=== PATIENT | female | born 1945 | race Caucasian/White ===

== ENCOUNTER 2024-12-10 20:31 | Observation (INO) | payer MEDICARE, SELFPAY ==
[2024-12-10 20:32] VITALS: BP 182/68; PULSE 67; RESP 18; TEMP 36.6; O2SAT 94; BMI 29.0
--- NOTE | 2024-12-10 20:49 | RAD_ITS ---
PROCEDURE: CHEST PA AND LATERAL 12/10/2024 REASON FOR EXAM: DIZZY TECHNIQUE: CHEST PA AND LATERAL COMPARISON: None. FINDINGS: The heart is borderline enlarged. Faint reticular opacities of the lung bases which may represent mild edema or infection. Elevation of left hemidiaphragm. RAD/Chest PA and Lateral IMPRESSION: As above. Reading Location: [place] [id number]
--- NOTE | 2024-12-10 20:57 | EX.ED.DYSGE1 ---
HPI <IGGY Snowden - Last Filed: 12/10/24 21:59> History of Present Illness Chief Complaint: Chest Other Narrative Narrative: 79-year-old female with past medical history of hypertension presents because she does not feel right. Around 3 PM she states she got an episode where she felt like I could be dizzy but was not quite described as a feeling that she might fall after standing and her right arm felt heavy. She was still able to hold her cell phone and move the right arm normally but it felt very heavy. This lasted a couple minutes. There was no associated chest pain or shortness of breath. There was extremity pain or paresthesias. She had similar episodes 2-3 times a lasting minutes each time prompting her to come in. She denies GI symptoms. She has no vision or speech changes. She had a headache earlier but it has resolved. PFSH <IGGY Snowden - Last Filed: 12/10/24 21:59> [facility] Medical History (Updated 12/10/24 @ 22:[address] Tyron Rivera MD) Hypertension Allergy/AdvReac Type Severity Reaction Status Date / Time No Known Allergies Allergy Verified 12/10/24 20:34 Social History (Updated 12/10/24 @ 20:35 by Collette Berman) housing: house Smoking Status: Never smoker ROS <IGGY Snowden - Last Filed: 12/10/24 21:59> ROS ED ROS Narrative Constitutional: Negative for fever, chills, malaise. CVS: Negative for palpitations, chest pain, syncope. Respiratory: Negative for shortness of breath, cough. GI: Negative for abdominal pain, nausea, vomiting, diarrhea. : Negative for dysuria. EXAM <IGGY Snowden - Last Filed: 12/10/24 21:59> Physical Exam Narrative Exam Narrative: CONST: Patient sitting in no acute distress. EYES: Normal inspection. PERRL, EOMI. ENT: Normal inspection, moist mucous membranes. NECK: Normal inspection. RESP: No respiratory distress, CTAB. CVS: Regular rate and rhythm, no murmur, no gallop. ABD: Soft and nontender, no guarding or rebound, nondistended. SKIN: Color normal, no rash, warm, dry, intact. EXTREMITIES: Normal appearance, no pedal edema. NEURO: Alert and oriented x 4. Face symmetric, cranial nerves II through XII grossly intact. 5/5 strength in upper and lower extremities. Normal finger-nose and icja-pr-ypcl. No drift. Normal speech, no extinction. NIH is 0. PSYCH: Normal affect. Const Vital Signs: 12/10/24 20:32 12/10/24 20:34 Temperature 97.9 F Temperature Source Oral Pulse Rate 67 Respiratory Rate 18 Respiratory Effort Normal Non-Labored Blood Pressure 182/68 H Blood Pressure Mean 106 Pulse Ox 94 Oxygen Delivery Method Room Air <Dr. Tyron Rivera MD - Last Filed: 12/10/24 22:21> Physical Exam Const Vital Signs: 12/10/24 20:32 12/10/24 20:34 Temperature 97.9 F Temperature Source Oral Pulse Rate 67 Respiratory Rate 18 Respiratory Effort Normal Non-Labored Blood Pressure 182/68 H Blood Pressure Mean 106 Pulse Ox 94 Oxygen Delivery Method Room Air MDM <IGGY Snowden - Last Filed: 12/10/24 21:59> [facility] MDM Narrative Medical decision making narrative: Differential: TIA, CVA 79-year-old female had multiple transient episodes of feeling off balance and right arm heaviness earlier today. She now feels back to baseline. She is awake and alert in no distress. She is hypertensive at 182/68 with otherwise normal vital signs. She is on chronic blood pressure medications. Her exam is benign and she has no focal neurological deficits with NIH of 0. No concern she could have had a TIA but since symptoms have resolved did not call a code stroke. I ordered a CT brain and CTA of the head/neck. CBC and BMP are unremarkable. Urinalysis has 100 leukocyte esterase and 5-10 WBCs but is nitrite and bacteria negative and she is not symptomatic so I do not think this represents a UTI. EKG is normal sinus rhythm with LAD and incomplete RBBB. There is no acute ischemic changes. There is no prior EKG for comparison. Troponin is 9. Radiologist read the chest x-ray as faint bibasilar opacities which could be edema or infection; she does not have fever, cough, respiratory symptoms so I do not suspect infection. CT brain is negative. CT of the head/neck is pending. Lab Data Attestation: I reviewed the patient's lab results. Labs: Laboratory Results - last 24 hr 12/10/24 12/10/24 20:15 21:02 WBC 9.3 RBC 4.79 Hgb 14.2 Hct 42.1 MCV 87.9 MCH 29.6 MCHC 33.7 RDW Std Deviation 41.0 RDW Coeff of Wally 12.6 Plt Count 283 MPV 9.2 Immature Gran % (Auto) 0.500 Neut % (Auto) 70.8 H Lymph % (Auto) 19.1 Calhoun % (Auto) 7.7 Eos % (Auto) 0.9 Baso % (Auto) 1.0 Absolute Neuts (auto) 6.6 Absolute Lymphs (auto) 1.78 Nucleated RBC % 0 Sodium 133 Potassium 3.8 Chloride 95 L Carbon Dioxide 26.2 Anion Gap 11 BUN 16 Creatinine 0.89 Estim Creat Clear Calc 50.51 Est GFR (MDRD) Non-Af 66 BUN/Creatinine Ratio 18.2 Glucose 122 H Calcium 9.5 Troponin T High Sens 9 Urine Color Yellow Urine Clarity Clear Urine pH 6.5 Ur Specific [place] 1.015 Urine Protein 15 H Urine Glucose (UA) Normal Urine Ketones Negative Urine Occult Blood 25 H Urine Nitrite Negative Urine Bilirubin Negative Urine Urobilinogen Normal Ur Leukocyte Esterase 100 H Urine RBC 0-5 SEEN Urine WBC 5-10 SEEN Ur Squamous Epith Cells 0-5 SEEN Urine Bacteria 0 SEEN Urine Mucus 0 SEEN Radiography Diagnostic Testing: Clinical Impression(s) from Imaging Studies Chest X-Ray 12/10/24 20:49 IMPRESSION: As above. Reading Location: [id number] Brain CT 12/10/24 21:02 IMPRESSION: No acute intracranial abnormality. Reading Location: [id number] Head/Neck CTA 12/10/24 21:02 IMPRESSION: 1. No large vessel occlusion. 2. Focal narrowing at the A3 segment of the left MEJIA. 3. Tiny 1-2 mm outpouching near the terminus of the right internal carotid artery, possibly a tiny aneurysm, though vessel infundibulum could appear similar. 4. Solid pulmonary nodules at the left lung apex measuring up to [address] chest in 12 months if patient is at high risk for malignancy per Fleischner society guidelines. Reading Location: [facility] ED attending interpretation of 2 view chest x-ray shows normal heart size. No large infiltrates, no effusions. The radiologist read faint reticular opacities in both lung bases which could be edema or infection. Patient does not have symptoms referable fever or cough so I do not think this is infectious. EKG Initial EKG: Attestation: I personally reviewed and interpreted this EKG as follows: Interpretation: Sinus Rhythm and No Acute Injury Pattern Comments: Normal sinus rhythm at 65 bpm Left axis deviation Incomplete RBBB No STEMI Prior EKG tracings: not available for review <Dr. Tyron Rivera MD - Last Filed: 12/10/24 22:21> MDM MDM Narrative Medical decision making narrative: Differential: TIA, CVA 79-year-old female had multiple transient episodes of feeling off balance and right arm heaviness earlier today. She now feels back to baseline. She is awake and alert in no distress. She is hypertensive at 182/68 with otherwise normal vital signs. She is on chronic blood pressure medications. Her exam is benign and she has no focal neurological deficits with NIH of 0. No concern she could have had a TIA but since symptoms have resolved did not call a code stroke. I ordered a CT brain and CTA of the head/neck. CBC and BMP are unremarkable. Urinalysis has 100 leukocyte esterase and 5-10 WBCs but is nitrite and bacteria negative and she is not symptomatic so I do not think this represents a UTI. EKG is normal sinus rhythm with LAD and incomplete RBBB. There is no acute ischemic changes. There is no prior EKG for comparison. Troponin is 9. Radiologist read the chest x-ray as faint bibasilar opacities which could be edema or infection; she does not have fever, cough, respiratory symptoms so I do not suspect infection. CT brain is negative. CT of the head/neck is pending. I have personally performed a face to face assessment of the patient and have reviewed the HERMELINDO Note. I performed a substantive portion of the visit including all aspects of the following. My deluca findings include: History is remarkable for intermittent heaviness of her right upper extremity. She did have a headache earlier today. Denied double vision, blurred vision loss of vision. No trouble with speech or swallowing. She has no history of TIA or CVA. She states she was not dragging her right leg. She felt like she was off when she had the heaviness in her arm. She had another episode while she was in department after the PA had seen her. She did not tell anyone about it. These episodes last up to several minutes. Exam is remarkable for slight drift right lower extremity. There is no other abnormality noted on neurologic exam. Medical Decision Making concern patient is having stuttering TIAs. Do not believe this is a conversion reaction. Doubt this is related to a tumor or vasculitis. Stroke up work was entertaining. The CT a of the head neck and unenhanced scan reports were reviewed. Other additions or changes: Since patient had multiple episodes of arm feeling heavy and had some slight weakness in the right lower extremity on my examination hospitalist was paged for TIA/stroke workup. Since there is concern that this represents stuttering TIAs allowing for permissive hypertension. NIH on my exam is 1 for slight drift right lower extremity. Lab Data Labs: Laboratory Results - last 24 hr 12/10/24 12/10/24 20:15 21:02 WBC 9.3 RBC 4.79 Hgb 14.2 Hct 42.1 MCV 87.9 MCH 29.6 MCHC 33.7 RDW Std Deviation 41.0 RDW Coeff of Wally 12.6 Plt Count 283 MPV 9.2 Immature Gran % (Auto) 0.500 Neut % (Auto) 70.8 H Lymph % (Auto) 19.1 Calhoun % (Auto) 7.7 Eos % (Auto) 0.9 Baso % (Auto) 1.0 Absolute Neuts (auto) 6.6 Absolute Lymphs (auto) 1.78 Nucleated RBC % 0 Sodium 133 Potassium 3.8 Chloride 95 L Carbon Dioxide 26.2 Anion Gap 11 BUN 16 Creatinine 0.89 Estim Creat Clear Calc 50.51 Est GFR (MDRD) Non-Af 66 BUN/Creatinine Ratio 18.2 Glucose 122 H Calcium 9.5 Troponin T High Sens 9 Urine Color Yellow Urine Clarity Clear Urine pH 6.5 Ur Specific [place] 1.015 Urine Protein 15 H Urine Glucose (UA) Normal Urine Ketones Negative Urine Occult Blood 25 H Urine Nitrite Negative Urine Bilirubin Negative Urine Urobilinogen Normal Ur Leukocyte Esterase 100 H Urine RBC 0-5 SEEN Urine WBC 5-10 SEEN Ur Squamous Epith Cells 0-5 SEEN Urine Bacteria 0 SEEN Urine Mucus 0 SEEN Radiography Chest X-Ray - ED: 2 View (Normal cardiac silhouette and size. There are some minor chronic changes versus poor in story volume. Osseous structures reveal some degenerative changes no acute findings. Hilum is unremarkable. This is dependently reviewed interpreted by me.) Diagnostic Testing: Clinical Impression(s) from Imaging Studies Chest X-Ray 12/10/24 20:49 IMPRESSION: As above. Reading Location: [id number] Brain CT 12/10/24 21:02 IMPRESSION: No acute intracranial abnormality. Reading Location: [facility] Head/Neck CTA 12/10/24 21:02 IMPRESSION: 1. No large vessel occlusion. 2. Focal narrowing at the A3 segment of the left MEJIA. 3. Tiny 1-2 mm outpouching near the terminus of the right internal carotid artery, possibly a tiny aneurysm, though vessel infundibulum could appear similar. 4. Solid pulmonary nodules at the left lung apex measuring up to [address] chest in 12 months if patient is at high risk for malignancy per Fleischner society guidelines. Reading Location: [facility] Management Discussion w/another healthcare provider: Hospitalist (Dr. Sarmiento was paged for PCU observation status for stroke/TIA workup. Dr. Sarmiento has accepted patient.) Discharge Plan Triage Chief Complaint: Chest Other ED Midlevel Provider: Carol Matos ED Provider: Tyron Rivera Dx/Rx/DC Orders Clinical Impression: Paresthesia of right arm, Transient weakness of right lower extremity, Elevated blood-pressure reading without diagnosis of hypertension Primary Care Provider: Mike Clayton Referrals: Mike Clayton MD [Primary Care Provider] - Print Language: Surinamese
[2024-12-10 20:59] LABS: Hematocrit 42.1 % (37-47); Hemoglobin 14.2 g/dL (12.0-15.0); Immature Granulocytes Count 0.050 X10^3/uL (0.0-0.0); Mean Corp Hgb Conc 33.7 g/dL (32-36); Mean Corpuscular Volume 87.9 fL (81-99); Mean Platelet Vol. 9.2 fl (6.2-12.0); NRBC Flagged by Analyzer 0 % (0-5); Platelet Count 283 K/mm3 (150-450); RBC Distribution Width CV 12.6 % (11.6-14.6); RBC Distribution Width SD 41.0 fl (35.1-43.9); Red Blood Count 4.79 M/mm3 (4.2-5.4); White Blood Count 9.3 K/mm3 (4.4-11.0)
--- NOTE | 2024-12-10 21:02 | CT_ITS ---
PROCEDURE: BRAIN/HEAD WITHOUT CONTRAST 12/10/2024 REASON FOR EXAM: PARESTHESIA TECHNIQUE: BRAIN/HEAD WITHOUT CONTRAST Coronal and Sagittal reconstruction series were provided. One or more dose reduction techniques were used (e.g., Automated exposure control, adjustment of the mA and/or kV according to patient size, use of iterative reconstruction technique. RADIATION DOSE SUMMARY: CTDlvol: 45 mGy DLP: 880 mGycm COMPARISON: None FINDINGS: Brain: No acute intracranial hemorrhage, mass effect, or midline shift. Padilla- white matter differentiation is maintained. CSF Spaces: Moderate generalized cerebral atrophy Sinuses/Mastoids: Clear at visualized levels Bones: No displaced calvarial fracture. Incomplete fusion of the posterior arch of C1. Atherosclerotic calcification of the intracranial vasculature. CT/Brain/Head without Contrast IMPRESSION: No acute intracranial abnormality. Reading Location: [id number]
--- NOTE | 2024-12-10 21:02 | CT_ITS ---
PROCEDURE: CTA HEAD AND NECK W/ CONTRAST 12/10/2024 REASON FOR EXAM: RIGHT ARM PARESTHESIA TECHNIQUE: CTA HEAD AND NECK W/ CONTRAST Multiplanar Sagittal and Coronal images were obtained. 3D post processing was performed CONTRAST: Isovue 370 VOLUME: 100 mL One or more dose reduction techniques were used (e.g., Automated exposure control, adjustment of the mA and/or kV according to patient size, use of iterative reconstruction technique). RADIATION DOSE SUMMARY: CTDlvol: 20.8 mGy DLP: 697 mGycm COMPARISON: Same date CT head FINDINGS: Aortic Arch: Normal size and branching pattern. Mild atherosclerotic plaque. Brachiocephalic and Subclavians: Unremarkable RIGHT Carotid: Right CCA: Mild calcified and soft plaque at the carotid bulb. Right ICA: Mild calcified and soft plaque. Maximum stenosis (NASCET): <50 % Right ECA: Unremarkable. LEFT Carotid: Left CCA: Mild calcified and soft plaque at the carotid bulb. Left ICA: Mild calcified and soft plaque. Maximum stenosis (NASCET): <50% Left ECA: Unremarkable. Vertebrals: Left dominant. Arise from the subclavians. The right vertebral artery appears to terminate as the PICA. RIGHT Vertebral: Unremarkable. LEFT Vertebral: Unremarkable. Anatomy: The P1 segment of the left BICYCLE ASSEMBLER appears hypoplastic. Aneurysm or AVM: There is a tiny 1-2 mm outpouching near the terminus of the right internal carotid artery (series 5, image 369). Anterior cerebral arteries: There is focal narrowing at the A3 segment of the left MEJIA (series 5, images 405-411; sagittal MIP image 141). Middle cerebral arteries: Unremarkable. Basilar artery: Unremarkable. Posterior cerebral arteries: Unremarkable. Other major branches of the posterior circulation: Unremarkable. Major venous structures: Unremarkable. Other findings: Neck: No lymphadenopathy. Lungs: There are few solid nodules at left lung apex measuring up to 3 mm in size (series 5, image 54). Bones: Degenerative changes of the spine. Incomplete fusion of the posterior arch of C1. CT/CTA Head AND Neck W/ Contrast IMPRESSION: 1. No large vessel occlusion. 2. Focal narrowing at the A3 segment of the left MEJIA. 3. Tiny 1-2 mm outpouching near the terminus of the right internal carotid art jesse, possibly a tiny aneurysm, though vessel infundibulum could appear similar. 4. Solid pulmonary nodules at the left lung apex measuring up to [address] chest in 12 months if patient is at high risk for malignancy per Fleischner society guidelines. Reading Location: [id number]
[2024-12-10 21:06] LABS: Mucous, Urine 0 SEEN /hpf (<or=2+)
[2024-12-10 21:09] LABS: Color, Urine Yellow (Yellow); Glucose, Dipstick Normal (Normal); Ketone-Dipstick Negative (Negative); Leukocyte Esterase-Dipstick 100 /ul (Negative); Nitrite-Dipstick Negative (Negative); Occult Blood-Urine 25 /ul (Negative); Protein-Dipstick 15 mg/dl (Negative); Specific Gravity, Urine 1.015 (1.002-1.030); Urine Bilirubin Dipstick Negative (Negative)
[2024-12-10 21:21] LABS: Red Blood Cells-Urine 0-5 SEEN /hpf (0-5); Squamous Epithelial Cells - UA 0-5 SEEN /hpf (5-10)
[2024-12-10 21:30] LABS: Anion Gap 11 (5-15); BUN 16 mg/dL (4-19); BUN/Creat Ratio 18.2 RATIO (10-20); Calcium,Total 9.5 mg/dL (7.6-11.0); Carbon Dioxide 26.2 mmol/L (21.0-32.0); Chloride 95 mmol/L (98-108); Estimated Creatinine Clearance 50.51 ml/min (50-250); Glucose 122 mg/dL (70-99); Potassium 3.8 mmol/L (3.3-5.1); Troponin T High Sensitivity 9 ng/L (<=14)
--- NOTE | 2024-12-10 22:20 | PCM.HP.STD ---
HPI - General General Date of Admission: 12/10/24 Date of Service: 12/10/24 Chief Complaint: Dizziness with right arm paresthesias HPI Narrative LUTHER MARIANO, is a 79 F who presented to [facility] ED on 12/10/2024 with dizziness and right arm paresthesias. Patient lives at home alone. Has minimal medical history, is only on Lopressor for hypertension. Very good functional status at baseline. Has had no recent illnesses or medical issues. This afternoon she noted that she was not feeling right. Around 3 PM she began to have some dizziness and a steadiness on her feet as well as right arm heaviness. This lasted a few minutes. She then had 2-3 more episodes like this lasting a minute or 2 each time, so she came in for further evaluation. In the ED she was hypertensive to the 180s systolic but otherwise stable on room air at rest. CBC and BMP were benign. CT brain was unremarkable. CTA head/neck showed focal narrowing at the A3 segment of the left MEJIA but otherwise no large vessel occlusion. Chest x-ray was unremarkable. Given concern for TIA versus CVA, hospitalist was contacted for admission. I saw the patient at bedside in the ED, son was present. Patient was sitting back comfortably in bed, conversing normally, in no acute distress. She is very pleasant. Denies any history of symptoms like this. Reports feeling about back to her normal currently. No other acute concerns. Will be admitted for further management. [facility] Medical History (Updated 12/10/24 @ 22:[address] Evan Sarmiento, DO) Hypertension Home Medications ?Medication ?Instructions ?Recorded ?Last Taken ?Type metoprolol tartrate 50 mg tablet 50 mg PO BID 12/10/24 Unknown History Allergy/AdvReac Type Severity Reaction Status Date / Time No Known Allergies Allergy Verified 12/10/24 20:34 Social History (Updated 12/10/24 @ 20:35 by Collette Berman) housing: house Smoking Status: Never smoker ROS Constitutional Constitutional: Denies chills, fatigue, fever(s) or weakness Eyes Eyes: Denies change in vision Cardiovascular Cardiovascular: Denies chest pain Respiratory/Chest Respiratory/Chest: Denies shortness of breath at rest Gastrointestinal Gastrointestinal: Denies abdominal pain Genitourinary Genitourinary: Denies dysuria Musculoskeletal Musculoskeletal: Denies arthralgias or myalgias Neurologic Neurologic: Reports disequilibrium, dizziness, focal weakness, numbness and paresthesias; Denies headache(s) Vital Signs Vital Signs Vital Signs: 12/10/24 20:32 12/10/24 20:34 Temperature 97.9 F Temperature Source Oral Pulse Rate 67 Respiratory Rate 18 Respiratory Effort Normal Non-Labored Blood Pressure 182/68 H Blood Pressure Mean 106 Pulse Ox 94 Oxygen Delivery Method Room Air Weight Weight: 76.6 kg Body Mass Index (BMI) 29.0 Physical Exam Const alert, oriented x3, no apparent distress, average body habitus, healthy appearing and well nourished Constitutional Narrative: Pleasant elderly female, appears younger than stated age, sitting back comfortably in bed, conversing normally, in no acute distress. General Appearance: cooperative, comfortable, well kempt and well developed HEENT normocephalic, head/scalp atraumatic, hearing grossly normal bilaterally, nasal mucous membranes and turbinates normal and moist oral mucous membranes Eyes PERRL, EOMs intact bilaterally and conjunctivae normal Neck full ROM Chest inspection of chest normal Resp normal respiratory effort, normal air movement, no use of accessory muscles and clear to auscultation bilaterally Cardio regular rate, regular rhythm, no murmurs and peripheral pulses 2+ throughout GI normal to inspection, nondistended, normoactive bowel sounds, soft to palpation, non-tender and non-distended Back/Spine normal ROM Extremity normal to inspection, full ROM and no pedal edema Skin no rashes or lesions noted Neuro oriented x3, moves all extremities and no focal motor deficits Speech: speech normal Motor Exam: strength 5/5 throughout Psych mental status grossly normal Results Lab / Micro Data 12/10/24 20:15 12/10/24 20:15 Labs: Laboratory Results - last 24 hr 12/10/24 20:15: WBC 9.3, RBC 4.79, Hgb 14.2, Hct 42.1, MCV 87.9, MCH 29.6, MCHC 33.7, RDW Std Deviation 41.0, RDW Coeff of Wally 12.6, Plt Count 283, MPV 9.2, Immature Gran % (Auto) 0.500, Neut % (Auto) 70.8 H, Lymph % (Auto) 19.1, [place] % (Auto) 7.7, Eos % (Auto) 0.9, Baso % (Auto) 1.0, Absolute Neuts (auto) 6.6, Absolute Lymphs (auto) 1.78, Nucleated RBC % 0, Sodium 133, Potassium 3.8, Chloride 95 L, Carbon Dioxide 26.2, Anion Gap 11, BUN 16, Creatinine 0.89, Estim Creat Clear Calc 50.51, Est GFR (MDRD) Non-Af 66, BUN/Creatinine Ratio 18.2, Glucose 122 H, Calcium 9.5, Troponin T High Sens 9 12/10/24 21:02: Urine Color Yellow, Urine Clarity Clear, Urine pH 6.5, Ur Specific [place] 1.015, Urine Protein 15 H, Urine Glucose (UA) Normal, Urine Ketones Negative, Urine Occult Blood 25 H, Urine Nitrite Negative, Urine Bilirubin Negative, Urine Urobilinogen Normal, Ur Leukocyte Esterase 100 H, Urine RBC 0-5 SEEN, Urine WBC 5-10 SEEN, Ur Squamous Epith Cells 0-5 SEEN, Urine Bacteria 0 SEEN, Urine Mucus 0 SEEN Imaging Radiology Impression Chest X-Ray 12/10/24 20:49 IMPRESSION: As above. Reading Location: [id number] Brain CT 12/10/24 21:02 IMPRESSION: No acute intracranial abnormality. Reading Location: [facility] Head/Neck CTA 12/10/24 21:02 IMPRESSION: 1. No large vessel occlusion. 2. Focal narrowing at the A3 segment of the left MEJIA. 3. Tiny 1-2 mm outpouching near the terminus of the right internal carotid artery, possibly a tiny aneurysm, though vessel infundibulum could appear similar. 4. Solid pulmonary nodules at the left lung apex measuring up to [address] chest in 12 months if patient is at high risk for malignancy per Fleischner society guidelines. Reading Location: [facility] Assessment & Plan Assessment/Plan (1) TIA (transient ischemic attack): PLAN: Plan Patient is an 79-year-old female who presented to [facility] ED on 12/10/2024 with dizziness and right arm paresthesias. 1. Dizziness with right arm paresthesias, TIA/CVA rule out ? Admit under observation status to PCU. Neurology consulted. Presented with intermittent dizziness with unsteadiness and right arm paresthesias concerning for TIA. CT brain negative. CTA head/neck did show focal narrowing at the A3 segment of the left ICA, otherwise no large vessel occlusion. Orders placed per stroke protocol order set. MRI brain and echo ordered. Lipid panel, A1c and TSH ordered. Will start aspirin and high intensity statin. Monitor closely. 2. Hypertension ? Will hold home Lopressor for permissive hypertension. DVT prophylaxis: SCDs CODE STATUS: Full code, verified Expected disposition: Home, TBD Total clinical time spent by myself addressing the patient's medical issues, reviewing all the data, and collaborating with patient's care team: 55 minutes. Charges/Coding Visit Charges Inpatient E&M: 17230 Init Hosp L2
[2024-12-10 22:22] VITALS: BP 148/78; PULSE 67; RESP 18; TEMP 36.6; O2SAT 94
--- NOTE | 2024-12-10 22:24 | ECHOD_ITS ---
Reason For Study Reason For Study: TIA/STROKE Procedure This was a 2D Doppler, Color Flow transthoracic echocardiogram. Exam performed portable in patient room. Left Ventricle Sigmoid septum. Left ventricular systolic function is hyperdynamic. Stage 1 diastolic dysfunction. The left ventricular ejection fraction is 70 %. No regional wall motion abnormalities noted. Right Ventricle Normal right ventricle. Normal systolic function. Atria The left and right atria are normal. Mitral Valve The mitral valve is structurally normal. No prolapse or stenosis seen. No mitral valve insufficiency. Tricuspid Valve Unable to estimate RV systolic pressure due to insufficient tricuspid regurgitant envelope. No tricuspid valve insufficiency. Aortic Valve The aortic valve is not well visualized in the short axis view. No aortic valve insufficiency. Great Vessels Normal sized aortic root. Inferior vena cava collapse with respiration. MMode/2D Measurements & Calculations LVIDd: 3.0 cm IVSd: 1.2 cm LVOT diam: 2.1 cm LVIDs: 1.6 cm LVPWd: 1.1 cm LVOT area: 3.6 cm2 RVDd: 3.9 cm FS: 44.5 % asc Aorta Diam: 3.1 cm LAV(MOD-bp): 35.0 ml LVAd ap4: 18.9 cm2 LAV(MOD-bp) Indexed: 19.3 ml/m2 LVLd ap4: 7.2 cm LAV(MOD-sp2): 33.3 ml EDV(MOD-sp4): 41.2 ml LAV(MOD-sp4): 36.1 ml EDV(sp4-el): 42.4 ml LVAs ap4: 10.8 cm2 LVLs ap4: 6.4 cm ESV(MOD-sp4): 14.9 ml ESV(sp4-el): 15.5 ml EF(MOD-sp4): 63.9 % EF(sp4-el): 63.3 % SV(MOD-sp4): 26.3 ml SV(MOD-sp2): 28.1 ml LVAd ap2: 19.7 cm2 LVLd ap2: 7.0 cm SI(MOD-sp4): 14.5 ml/m2 SI(MOD-sp2): 15.5 ml/m2 EDV(MOD-sp2): 44.8 ml EDV(sp2-el): 46.7 ml LVAs ap2: 11.4 cm2 LVLs ap2: 6.3 cm ESV(MOD-sp2): 16.7 ml ESV(sp2-el): 17.3 ml EF(MOD-sp2): 62.7 % SV(sp4-el): 26.8 ml Ao sinus diam: 3.[address] Junction: 2.3 cm LA A4 area: 15.2 cm2 LA dimension(2D): 2.9 cm RA A4 area: 12.3 cm2 TAPSE: 2.0 cm Time Measurements MV dec time: 0.32 sec Doppler Measurements & Calculations MV E max isidoro: 76.9 cm/sec Lat Peak E' Isidoro: 6.3 cm/sec Med Peak E' Isidoro: 7.9 cm/sec MV A max isidoro: 123.3 cm/sec E/E' lat: 12.2 E/E' med: 9.7 MV E/A: 0.62 Ao V2 max: 141.8 cm/sec LV V1 max: 132.8 cm/sec MV dec slope: 238.5 cm/sec2 Ao max P.0 mmHg LV V1 max P.1 mmHg Ao V2 mean: 110.5 cm/sec LV V1 mean P.1 mmHg Ao mean P.2 mmHg LV V1 mean: 94.6 cm/sec Ao V2 VTI: 36.3 cm LV V1 VTI: 37.3 cm AV (velocity ratio): 1.0 KAMI(I,D): 3.7 cm2 KAMI(V,D): 3.4 cm2 SV(LVOT): 135.0 ml PA V2 max: 97.3 cm/sec ECHO/Echo Complete Interpretation Summary Stage 1 diastolic dysfunction. The left ventricular ejection fraction is 70 %. Ordering Physician: Evan Sarmiento Referring Physician: Tyron Rivera Performed By: Antionette Gomez RDCS
[2024-12-10 22:51] VITALS: BMI 28.3
[2024-12-10 22:52] VITALS: BP 181/72; PULSE 66; RESP 16; TEMP 36.3; O2SAT 99
[2024-12-10 22:57] LABS: Troponin T High Sens 2 HR 9 ng/L (<=14)
[2024-12-10 23:06] LABS: Pro- Brain NATRIURETIC PEPTIDE 206 pg/mL (<=1800)
[2024-12-11 00:05] VITALS: O2SAT 96
[2024-12-11 03:00] VITALS: BP 126/65; PULSE 60; RESP 16; TEMP 36.7; O2SAT 97
[2024-12-11 05:00] VITALS: BMI 28.3
[2024-12-11 06:30] LABS: Hematocrit 39.7 % (37-47); Hemoglobin 13.8 g/dL (12.0-15.0); Mean Corp Hgb Conc 34.8 g/dL (32-36); Mean Corpuscular Volume 86.3 fL (81-99); Mean Platelet Vol. 9.2 fl (6.2-12.0); Platelet Count 259 K/mm3 (150-450); RBC Distribution Width CV 12.9 % (11.6-14.6); RBC Distribution Width SD 40.4 fl (35.1-43.9); Red Blood Count 4.60 M/mm3 (4.2-5.4); White Blood Count 10.7 K/mm3 (4.4-11.0)
[2024-12-11 06:50] VITALS: BP 126/65; PULSE 60; RESP 16; TEMP 36.7; O2SAT 97
[2024-12-11 06:59] LABS: Anion Gap 9 (5-15); BUN 14 mg/dL (4-19); BUN/Creat Ratio 17.6 RATIO (10-20); Calcium,Total 9.4 mg/dL (7.6-11.0); Carbon Dioxide 27.6 mmol/L (21.0-32.0); Chloride 98 mmol/L (98-108); Cholesterol 164 mg/dL (<=200); Estimated Creatinine Clearance 55.55 ml/min (50-250); Glucose 101 mg/dL (70-99); Low Density Lipoprotein Calc. 90 mg/dL; Potassium 4.1 mmol/L (3.3-5.1); Triglycerides 55 mg/dL; Very Low Density Lipoprotein 11 mg/dL (5-40); cholesterol:hdl ratio screen 2.58
--- NOTE | 2024-12-11 07:35 | PN.HOSP_ITS ---
Reason for Visit Reason for Visit: Diagnoses Transient cerebral ischemic attack, unspecified (12/10/24) Subjective Subjective Symptoms has resolved. Feeling back to baseline now. Objective Data Objective Data Vital Signs: Vital Signs Temp Pulse Resp BP Pulse Ox O2 Del Method 36.7 C 60 16 126/65 H 97 Room Air 12/11/24 06:50 12/11/24 06:50 12/11/24 06:50 12/11/24 06:50 12/11/24 06:50 12/11/24 06:50 Oxygen Delivery Method Room Air Weight: 74.8 kg Body Mass Index (BMI) 28.3 Lab / Micro Data 12/11/24 05:55 12/11/24 05:55 Labs: Laboratory Results - last 24 hr 12/10/24 20:15: WBC 9.3, RBC 4.79, Hgb 14.2, Hct 42.1, MCV 87.9, MCH 29.6, MCHC 33.7, RDW Std Deviation 41.0, RDW Coeff of Wally 12.6, Plt Count 283, MPV 9.2, Immature Gran % (Auto) 0.500, Neut % (Auto) 70.8 H, Lymph % (Auto) 19.1, [place] % (Auto) 7.7, Eos % (Auto) 0.9, Baso % (Auto) 1.0, Absolute Neuts (auto) 6.6, Absolute Lymphs (auto) 1.78, Nucleated RBC % 0, Sodium 133, Potassium 3.8, C hloride 95 L, Carbon Dioxide 26.2, Anion Gap 11, BUN 16, Creatinine 0.89, Estim Creat Clear Calc 50.51, Est GFR (MDRD) Non-Af 66, BUN/Creatinine Ratio 18.2, G lucose 122 H, Hemoglobin A1c 5.9 H, Calcium 9.5, Troponin T High Sens 9, NT pro BNP II 206, TSH 3.610 12/10/24 21:02: Urine Color Yellow, Urine Clarity Clear, Urine pH 6.5, Ur Specific [place] 1.015, Urine Protein 15 H, Urine Glucose (UA) Normal, Urine Ketones Negative, Urine Occult Blood 25 H, Urine Nitrite Negative, Urine Bilirubin Negative, Urine Urobilinogen Normal, Ur Leukocyte Esterase 100 H, Urine RBC 0-5 SEEN, Urine WBC 5-10 SEEN, Ur Squamous Epith Cells 0-5 SEEN, Urine Bacteria 0 SEEN, Urine Mucus 0 SEEN 12/10/24 22:21: Troponin T Hi Sens 2 Hr 9 12/11/24 05:55: WBC 10.7, RBC 4.60, Hgb 13.8, Hct 39.7, MCV 86.3, MCH 30.0, MCHC 34.8, RDW Std Deviation 40.4, RDW Coeff of Wally 12.9, Plt Count 259, MPV 9.2, Sodium 134, Potassium 4.1, Chloride 98, Carbon Dioxide 27.6, Anion Gap 9, BUN 14, Creatinine 0.78, Estim Creat Clear Calc 55.55, Est GFR (MDRD) Non-Af 76, BUN/Creatinine Ratio 17.6, Glucose 101 H, Calcium 9.4, Triglycerides 55, Cholesterol 164, LDL Cholesterol, Calc 90, VLDL Cholesterol 11, HDL Cholesterol 64, Cholesterol/HDL Ratio 2.58 Radiography Diagnostic Testing: Radiology Impression Chest X-Ray 12/10/24 20:49 IMPRESSION: As above. Reading Location: [id number] Brain CT 12/10/24 21:02 IMPRESSION: No acute intracranial abnormality. Reading Location: [facility] Head/Neck CTA 12/10/24 21:02 IMPRESSION: 1. No large vessel occlusion. 2. Focal narrowing at the A3 segment of the left MEJIA. 3. Tiny 1-2 mm outpouching near the terminus of the right internal carotid artery, possibly a tiny aneurysm, though vessel infundibulum could appear similar. 4. Solid pulmonary nodules at the left lung apex measuring up to [address] chest in 12 months if patient is at high risk for malignancy per Fleischner society guidelines. Reading Location: [facility] Physical Exam Const alert and no apparent distress HEENT head/scalp atraumatic and moist oral mucous membranes Resp normal respiratory effort and no retractions Extremity normal to inspection Neuro oriented x3, no focal motor deficits and no sensory deficits noted Neuro Narrative: [place] 5-5 in upper and lower extremities bilaterally. [place]hwen intact. Speech: speech normal Assessment & Plan Assessment/Plan (1) Paresthesia of right arm: PLAN: With associated dizziness. Head CT was negative. CTA of the head neck showed narrowing of the A3 segment of the left ICA. Check MRI of the brain, echo. Continue with aspirin and 40 mg of atorvastatin. MRI of the brain showed prior punctate lesion of the left cerebellum. Neurology STEMI message stating to increase aspirin to 325 daily and continue with atorvastatin. PLAN: Plan Hypertension: Enalapril held to allow permissive hypertension concern for TIA/CVA. NIHSS NIHSS Nursing Documentation NIHSS Nursing Documentation: NIHSS: Ischemic Stroke/TIA Start: 12/10/24 22:52 Text: For PCU Patients: NIH and Neuro Check every 4 Status: Active hours, PRN and with change in RN caregiver. Freq: [id number] Protocol: Activity Type Activity Date Activity User E-sign Co-sign Detail Recorded Client Recorded Date Recorded By Document 12/11/24 06:45 OSMAR [id number] 12/11/24 06:58 OSMAR 12/11/24 06:45 NIH Stroke Scale [NIHSS] A score of 0 is normal or asymptomatic . Total possible score is 42. Inpatient: RN or Physician to activate a stroke alert for onset of new stroke symptoms or with NIHSS increase >/= 3 points. Following change in neurological status, NIHSS will be performed per physician order or more frequently PRN. -1a. Level of Consciousness 0 - Alert; keenly responsive -1b. LOC Questions 0 - Answers BOTH questions correctly -2. Best Gaze 0 - Normal -3. Visual 0 - No visual loss -4. Facial Palsy 0 - Normal symmetrical movements -5a. Left Arm 0 - No drift; arm holds 90 ( or 45) degrees for full 10 seconds -5b. Right Arm 0 - No drift; arm holds 90 ( or 45) degrees for full 10 seconds -6a. Left Leg 0 - No drift; leg holds 30- degree position for full 5 seconds -6b. Right Leg 0 - No drift; leg holds 30- degree position for full 5 seconds -7. Limb Ataxia 0 - Absent -8. Sensory 0 - Normal; no sensory loss -9. Best Language 0 - No aphasia; normal -10. Dysarthria 0 - Normal -11. Extinction and Inattention 0 - No abnormality -Total 0 Query Text:A score of 0 is normal or asymptomatic. Total possible score is 42 . ED: Notify Physician for NIHSS increase by > / = 3 points. Inpatient: RN or Physician to activate a stroke alert for NIHSS increase of > / = 3 points. Coma Scale [Assess] -Eye Opening Spontaneous -Motor Obeys Commands -Verbal Oriented [Total] -Coma Scale Total 15
[2024-12-11 11:20] VITALS: BP 150/66; PULSE 69; RESP 18; TEMP 36.3; O2SAT 99
--- NOTE | 2024-12-11 11:51 | NURSING ---
1120-VS and NIHSS late d/t pt off unit in MRI.
--- NOTE | 2024-12-11 12:08 | CASEMGMT ---
Social Work Per nurse, pt negative for new stroke, therefore PHQ9 not completed. Alycia Wong, [employer]
--- NOTE | 2024-12-11 13:33 | NEURO.CONS ---
Assessment and Plan: Neuro Assessment/Plan Telestroke Consult (Audio-video interface) 79 y/o woman with h/o HTN p/w right arm heaviness along with wobbly gait, happened twice, lasted for few minutes. In the ED she was hypertensive to the 180s systolic. CT head- no acute intracranial process. CTA- left A3 stenosis. LDL-90. A1c-5.9. 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 Diagnosis: TIA Plan: ASA (increase the dose to 325mg) and statin. Follow up TTE. 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 I personally attended this patient and spent a total time of 70 minutes evaluating this patient including clinical assessment, review of chart, medical history imaging, and determining appropriate treatment and workup. HPI Consult Data Date of Consult: 12/11/24 HPI Narrative HPI Narrative: 79 y/o woman with h/o HTN p/w right arm heaviness along with wobbly gait, happened twice, lasted for few minutes. In the ED she was hypertensive to the 180s systolic. CT head- no acute intracranial process. CTA- left A3 stenosis. LDL-90. A1c-5.9. 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 Today, patient reports feeling better with NIHSS-0 PFSH Medical History Hypertension Home Medications ?Medication ?Instructions ?Recorded ?Last Taken ?Type enalapril maleate 10 mg tablet 10 mg PO DAILY Blood pressure 12/10/24 12/10/24 History metoprolol tartrate 50 mg tablet 50 mg PO BID for heart rate 12/10/24 12/10/24 History aspirin 325 mg capsule 325 mg PO DAILY #30 caps 12/11/24 Unknown Rx atorvastatin 40 mg tablet 40 mg PO QHS #30 tabs 12/11/24 Unknown Rx Allergy/AdvReac Type Severity Reaction Status Date / Time No Known Allergies Allergy Verified 12/10/24 23:10 Social History (Updated 12/10/24 @ 20:35 by Collette Berman) housing: house Smoking Status: Never smoker Vital Signs Vital Signs Vital Signs: 12/10/24 20:32 12/10/24 20:34 12/10/24 22:22 Temperature 97.9 F 97.9 F Temperature Source Oral Pulse Rate 67 67 Respiratory Rate 18 18 Respiratory Effort Normal Non-Labored Respiratory Depth Respiratory Pattern Blood Pressure 182/68 H 148/78 H Blood Pressure Mean 106 101 Blood Pressure Source Blood Pressure Position Blood Pressure Location Pulse Ox 94 94 Oxygen Delivery Method Room Air 12/10/24 22:52 12/10/24 23:00 12/11/24 00:05 Temperature 97.4 F L Temperature Source Oral Pulse Rate 66 Respiratory Rate 16 Respiratory Effort Normal Non-Labored Respiratory Depth Normal Respiratory Pattern Normal Blood Pressure 181/72 H Blood Pressure Mean 108 Blood Pressure Source Monitor Blood Pressure Position Semi-Fowlers Blood Pressure Location Right Arm Pulse Ox 99 96 Oxygen Delivery Method Room Air Room Air Room Air 12/11/24 03:00 12/11/24 03:00 12/11/24 06:50 Temperature 98.0 F 98.0 F Temperature Source Oral Oral Pulse Rate 60 60 Respiratory Rate 16 16 Respiratory Effort Normal Non-Labored Respiratory Depth Normal Respiratory Pattern Normal Blood Pressure 126/65 H 126/65 H Blood Pressure Mean 85 85 Blood Pressure Source Monitor Blood Pressure Position Semi-Fowlers Blood Pressure Location Left Arm Pulse Ox 97 97 Oxygen Delivery Method Room Air Room Air Room Air 12/11/24 09:30 12/11/24 11:20 Temperature 97.3 F L Temperature Source Temporal Pulse Rate 69 Respiratory Rate 18 Respiratory Effort Normal Non-Labored Respiratory Depth Normal Respiratory Pattern Normal Blood Pressure 150/66 H Blood Pressure Mean 94 Blood Pressure Source Monitor Blood Pressure Position Sitting Blood Pressure Location Left Arm Pulse Ox 99 Oxygen Delivery Method Room Air Room Air Weight Weight: 74.8 kg Body Mass Index (BMI) 28.3 EEG Results Procedure Details EEG Procedure Details: LUTHER MRAIANO is a 79 year old F with a past medical history of , who presents for evaluation of Electroencephalogram on DATE at TIME Physical Exam Narrative General: The patient appears nutritionally appropriate, well-groomed, and appears comfortable in no acute distress. Mental Status:? The patient?s mental status was normal including orientation.? Language was intact.? Cranial nerves:? Visual alejandra full, and extra-ocular motion was intact. Symmetric face. Motor: Normal strength in all extremities. Sensation: Intact to touch in all extremities.? Coordination:? Bilateral finger to nose was normal.? There was no dysmetria. Gait:? deferred. Lab / Micro Data 12/11/24 05:55 12/11/24 05:55 Labs: Laboratory Results - last 24 hr 12/10/24 20:15: WBC 9.3, RBC 4.79, Hgb 14.2, Hct 42.1, MCV 87.9, MCH 29.6, MCHC 33.7, RDW Std Deviation 41.0, RDW Coeff of Wally 12.6, Plt Count 283, MPV 9.2, Immature Gran % (Auto) 0.500, Neut % (Auto) 70.8 H, Lymph % (Auto) 19.1, [place] % (Auto) 7.7, Eos % (Auto) 0.9, Baso % (Auto) 1.0, Absolute Neuts (auto) 6.6, Absolute Lymphs (auto) 1.78, Nucleated RBC % 0, Sodium 133, Potassium 3.8, Chloride 95 L, Carbon Dioxide 26.2, Anion Gap 11, BUN 16, Creatinine 0.89, Estim Creat Clear Calc 50.51, Est GFR (MDRD) Non-Af 66, BUN/Creatinine Ratio 18.2, Glucose 122 H, Hemoglobin A1c 5.9 H, Calcium 9.5, Troponin T High Sens 9, NT pro BNP II 206, TSH 3.610 12/10/24 21:02: Urine Color Yellow, Urine Clarity Clear, Urine pH 6.5, Ur Specific [place] 1.015, Urine Protein 15 H, Urine Glucose (UA) Normal, Urine Ketones Negative, Urine Occult Blood 25 H, Urine Nitrite Negative, Urine Bilirubin Negative, Urine Urobilinogen Normal, Ur Leukocyte Esterase 100 H, Urine RBC 0-5 SEEN, Urine WBC 5-10 SEEN, Ur Squamous Epith Cells 0-5 SEEN, Urine Bacteria 0 SEEN, Urine Mucus 0 SEEN 12/10/24 22:21: Troponin T Hi Sens 2 Hr 9 12/11/24 05:55: WBC 10.7, RBC 4.60, Hgb 13.8, Hct 39.7, MCV 86.3, MCH 30.0, MCHC 34.8, RDW Std Deviation 40.4, RDW Coeff of Wally 12.9, Plt Count 259, MPV 9.2, Sodium 134, Potassium 4.1, Chloride 98, Carbon Dioxide 27.6, Anion Gap 9, BUN 14, Creatinine 0.78, Estim Creat Clear Calc 55.55, Est GFR (MDRD) Non-Af 76, BUN/Creatinine Ratio 17.6, Glucose 101 H, Calcium 9.4, Triglycerides 55, Cholesterol 164, LDL Cholesterol, Calc 90, VLDL Cholesterol 11, HDL Cholesterol 64, Cholesterol/HDL Ratio 2.58 Imaging Radiology Impression Chest X-Ray 12/10/24 20:49 IMPRESSION: As above. Reading Location: [id number] Brain CT 12/10/24 21:02 IMPRESSION: No acute intracranial abnormality. Reading Location: [id number] Head/Neck CTA 12/10/24 21:02 IMPRESSION: 1. No large vessel occlusion. 2. Focal narrowing at the A3 segment of the left MEJIA. 3. Tiny 1-2 mm outpouching near the terminus of the right internal carotid artery, possibly a tiny aneurysm, though vessel infundibulum could appear similar. 4. Solid pulmonary nodules at the left lung apex measuring up to [address] chest in 12 months if patient is at high risk for malignancy per Fleischner society guidelines. Reading Location: [id number] Brain MRI 12/11/24 22:24 IMPRESSION: Prior punctate left cerebellar infarction. Otherwise negative [facility] Active Medications Active Medications Active Medications: Current Medications Generic Name Dose Route Start Last Admin Trade Name Freq PRN Reason Stop Dose Admin Acetaminophen 650 mg 12/10/24 22:52 12/11/24 11:27 Acetaminophen 325 Mg Tablet PO 650 mg Q6H PRN PRN Administration Pain 1-10 Or Fever>100.7 Aspirin 81 mg 12/11/24 08:00 12/11/24 11:25 Aspirin 81 Mg Tab.Chew PO 81 mg BREAKFAST STEVE Administration Atorvastatin Calcium 40 mg 12/11/24 22:00 Atorvastatin Calcium 40 Mg Tablet PO QHS STEVE Hydralazine HCl 5 mg 12/10/24 22:52 Hydralazine 20 Mg/Ml Vial IV 12/11/24 22:52 Q30M PRN maintain BP parameters with HR <60 Sodium Chloride 250 mls @ 15 mls/hr 12/10/24 22:52 IV .[id number] PRN Saline Flush Sodium Chloride 250 mls @ 15 mls/hr 12/10/24 22:52 IV .[id number] PRN Additional IVPB Infusion Labetalol HCl 10 - 20 mg 12/10/24 22:52 Labetalol 20 Mg/4 Ml Vial IV 12/11/24 22:52 Q10M PRN PRN maintain BP parameters with HR >/=60 Melatonin 3 mg 12/10/24 22:52 Melatonin 3 Mg Tablet PO QHS PRN PRN INSOMNIA Ondansetron HCl 4 mg 12/10/24 22:52 Ondansetron 4 Mg/2 Ml Vial IV Q8H PRN PRN NAUSEA/VOMITING Sodium Chloride 10 - 40 ml 12/10/24 22:52 0.9% Saline Lock 10 Ml Syringe IV UD PRN SALINE FLUSH NIHSS NIHSS Nursing Documentation NIHSS Nursing Documentation: NIHSS: Ischemic Stroke/TIA Start: 12/10/24 22:52 Text: For PCU Patients: NIH and Neuro Check every 4 Status: Active hours, PRN and with change in RN caregiver. Freq: [id number] Protocol: Activity Type Activity Date Activity User E-sign Co-sign Detail Recorded Client Recorded Date Recorded By Document 12/11/24 11:20 JS desktop 12/11/24 11:49 JS 12/11/24 11:20 NIH Stroke Scale [NIHSS] A score of 0 is normal or asymptomatic . Total possible score is 42. Inpatient: RN or Physician to activate a stroke alert for onset of new stroke symptoms or with NIHSS increase >/= 3 points. Following change in neurological status, NIHSS will be performed per physician order or more frequently PRN. -1a. Level of Consciousness 0 - Alert; keenly responsive -1b. LOC Questions 0 - Answers BOTH questions correctly -2. Best Gaze 0 - Normal -3. Visual 0 - No visual loss -4. Facial Palsy 0 - Normal symmetrical movements -5a. Left Arm 0 - No drift; arm holds 90 ( or 45) degrees for full 10 seconds -5b. Right Arm 0 - No drift; arm holds 90 ( or 45) degrees for full 10 seconds -6a. Left Leg 0 - No drift; leg holds 30- degree position for full 5 seconds -6b. Right Leg 0 - No drift; leg holds 30- degree position for full 5 seconds -7. Limb Ataxia 0 - Absent -8. Sensory 0 - Normal; no sensory loss -9. Best Language 0 - No aphasia; normal -10. Dysarthria 0 - Normal -11. Extinction and Inattention 0 - No abnormality -Total 0 Query Text:A score of 0 is normal or asymptomatic. Total possible score is 42 . ED: Notify Physician for NIHSS increase by > / = 3 points. Inpatient: RN or Physician to activate a stroke alert for NIHSS increase of > / = 3 points. Coma Scale [Assess] -Eye Opening Spontaneous -Motor Obeys Commands -Verbal Oriented [Total] -Coma Scale Total 15 NIHSS 1a. Level of Consciousness: 0 - Alert; keenly responsive 1b. LOC Questions: 0 - Answers BOTH questions correctly 1c. LOC Commands: 0 - Performs BOTH tasks correctly 2. Best Gaze: 0 - Normal 3. Visual: 0 - No visual loss 4. Facial Palsy: 0 - Normal symmetrical movements 5a. Left Arm: 0 - No drift; arm holds 90 (or 45) degrees for full 10 seconds 5b. Right Arm: 0 - No drift; arm holds 90 (or 45) degrees for full 10 seconds 6a. Left Le - No drift; leg holds 30-degree position for full 5 seconds 6b. Right Le - No drift; leg holds 30-degree position for full 5 seconds 7. Limb Ataxia: 0 - Absent 8. Sensory: 0 - Normal; no sensory loss 9. Best Language: 0 - No aphasia; normal 10. Dysarthria: 0 - Normal 11. Extinction and Inattention: 0 - No abnormality Total: 0
--- NOTE | 2024-12-11 13:36 | DS.PCM_ITS ---
Providers Date of Admission: 12/10/24 Primary Care Physician: Dr. Mike Clayton MD Consultations 12/10/24 22:52 Consult: Tele-Neurology Routine Consulting Provider: [facility] Reason for Consult: Acute Ischemic Stroke/TIA EMERGENT Consult: No MD Notified: Yes Date Notified: 12/11/24 Time Notified: 01:01 Method of Notification: Answering Service Nursing Unit Staff Notify [facility] of Tele-Neurology Consult: Yes Reason For Visit: STROKELIKE SYMPTOMS Diagnosis Discharge Diagnosis (1) Paresthesia of right arm: Status: Acute Code(s): R20.2 - Paresthesia of skin Plan: With associated dizziness. Head CT was negative. CTA of the head neck showed narrowing of the A3 segment of the left ICA. Check MRI of the brain, echo. Continue with aspirin and 40 mg of atorvastatin. MRI of the brain showed prior punctate lesion of the left cerebellum. Neurology STEMI message stating to increase aspirin to 325 daily and continue with atorvastatin. Plan Hypertension: Enalapril held to allow permissive hypertension concern for TIA/CVA. Medications at Discharge Home Medications enalapril maleate 10 mg tablet 10 mg PO DAILY Blood pressure 12/10/24 metoprolol tartrate 50 mg tablet 50 mg PO BID 12/10/24 aspirin 325 mg capsule 325 mg PO DAILY #30 caps 12/11/24 atorvastatin 40 mg tablet 40 mg PO QHS #30 tabs 12/11/24 Hospital Course Operations None Procedures 2-D Echocardiogram Summary of Care Provided Minutes Spent on Discharge: 32 Hospital Course: This is an 79-year-old female who presented with right-sided paresthesias as well as discount of unsteadiness. Denied any overt dizziness. 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 CTA of the head neck showed focal narrowing of the A3 segment on the left. Seen by neurology felt the patient had TIA and recommended full dose aspirin as well as atorvastatin. Patient to follow-up with neurology as outpatient. Echo was unremarkable. Weight / BMI Weight Weight: 74.8 kg Body Mass Index (BMI) 28.3 ABG / Lab / Microbiology Data 12/11/24 05:55 12/11/24 05:55 Laboratory: Laboratory Results - last 24 hr 12/10/24 20:15: WBC 9.3, RBC 4.79, Hgb 14.2, Hct 42.1, MCV 87.9, MCH 29.6, MCHC 33.7, RDW Std Deviation 41.0, RDW Coeff of Wally 12.6, Plt Count 283, MPV 9.2, Immature Gran % (Auto) 0.500, Neut % (Auto) 70.8 H, Lymph % (Auto) 19.1, Early % (Auto) 7.7, Eos % (Auto) 0.9, Baso % (Auto) 1.0, Absolute Neuts (auto) 6.6, Absolute Lymphs (auto) 1.78, Nucleated RBC % 0, Sodium 133, Potassium 3.8, C hloride 95 L, Carbon Dioxide 26.2, Anion Gap 11, BUN 16, Creatinine 0.89, Estim Creat Clear Calc 50.51, Est GFR (MDRD) Non-Af 66, BUN/Creatinine Ratio 18.2, G lucose 122 H, Hemoglobin A1c 5.9 H, Calcium 9.5, Troponin T High Sens 9, NT pro BNP II 206, TSH 3.610 12/10/24 21:02: Urine Color Yellow, Urine Clarity Clear, Urine pH 6.5, Ur Specific [place] 1.015, Urine Protein 15 H, Urine Glucose (UA) Normal, Urine Ketones Negative, Urine Occult Blood 25 H, Urine Nitrite Negative, Urine Bilirubin Negative, Urine Urobilinogen Normal, Ur Leukocyte Esterase 100 H, Urine RBC 0-5 SEEN, Urine WBC 5-10 SEEN, Ur Squamous Epith Cells 0-5 SEEN, Urine Bacteria 0 SEEN, Urine Mucus 0 SEEN 12/10/24 22:21: Troponin T Hi Sens 2 Hr 9 12/11/24 05:55: WBC 10.7, RBC 4.60, Hgb 13.8, Hct 39.7, MCV 86.3, MCH 30.0, MCHC 34.8, RDW Std Deviation 40.4, RDW Coeff of Wally 12.9, Plt Count 259, MPV 9.2, Sodium 134, Potassium 4.1, Chloride 98, Carbon Dioxide 27.6, Anion Gap 9, BUN 14, Creatinine 0.78, Estim Creat Clear Calc 55.55, Est GFR (MDRD) Non-Af 76, BUN/Creatinine Ratio 17.6, Glucose 101 H, Calcium 9.4, Triglycerides 55, Cholesterol 164, LDL Cholesterol, Calc 90, VLDL Cholesterol 11, HDL Cholesterol 64, Cholesterol/HDL Ratio 2.58 Radiography Diagnostic Testing: Radiology Impression Chest X-Ray 12/10/24 20:49 IMPRESSION: As above. Reading Location: [id number] Brain CT 12/10/24 21:02 IMPRESSION: No acute intracranial abnormality. Reading Location: [id number] Head/Neck CTA 12/10/24 21:02 IMPRESSION: 1. No large vessel occlusion. 2. Focal narrowing at the A3 segment of the left MEJIA. 3. Tiny 1-2 mm outpouching near the terminus of the right internal carotid artery, possibly a tiny aneurysm, though vessel infundibulum could appear similar. 4. Solid pulmonary nodules at the left lung apex measuring up to [address] chest in 12 months if patient is at high risk for malignancy per Fleischner society guidelines. Reading Location: [id number] Echocardiogram 12/10/24 22:24 Interpretation Summary Stage 1 diastolic dysfunction. The left ventricular ejection fraction is 70 %. Ordering Physician: Evan Sarmiento Referring Physician: Tyron Rivera Performed By: Antionette Gomez RDCS Brain MRI 12/11/24 22:24 IMPRESSION: Prior punctate left cerebellar infarction. Otherwise negative Reading Location[facility] Instructions DC O2, CPAP, BIPAP Needs Home O2 Discharge instructions: No Meaningful Use Info Meaningful Use Meaningful Use Diagnoses (Choose all that apply): Ischemic CVA CVA Therapy Assessed for PT,OT and/or ST?: Yes Ischemic Stroke Antithrombotic order at d/c?: Yes Dx of Atrial fib/flutter?: No Anticoagulant at discharge?: No Reason anticoagulant not ordered: Treatment not Indicated Statins at discharge?: Yes Primary Dx Acute Ischemic CVA?: Yes Discharge Plan Admission Admit Date/Time: 12/10/24 22:20 Primary Reason for Your Visit: TIA Attending Provider: Emigdio Perez Primary Care Provider: Mike Clayton Consulting Providers: Jabier Rose; Kelly Jiang; Pamela Green; Lisa Harley; Tara Strickland; Jono Doty; Alley Curtis; Cory Jordan; Jonah Funez; Thompson Hardwick; Ruth Andres; Silver Burgos; Ashlie Zamudio; Shoaib Eason; Arlene Castanon; João Corona; Charmaine Marquez; Kalen Tai; Isi Coello; Yunile Badillo; Evan Sarmiento Discharge Orders/Prescriptions Prescriptions: New atorvastatin 40 mg Tablet 40 mg PO QHS Qty: 30 0RF aspirin 325 mg capsule 325 mg PO DAILY Qty: 30 0RF Rx Instructions: [id number]. No prescription required. Continued metoprolol tartrate 50 mg tablet 50 mg PO BID enalapril maleate 10 mg tablet 10 mg PO DAILY Discontinued aspirin 81 mg tablet,chewable 1 tab PO DAILY Referrals / Follow Up: [facility] [Provider Group] - Within 1 Month Mike Clayton MD [Primary Care Provider] - Within 2 Weeks Disposition Disposition (needs filled in before D/C Order can be placed): Home, Self Care Charges/Coding Visit Charges Inpatient E&M: 59751 Disch Hosp >30min
--- NOTE | 2024-12-11 14:37 | CASEMGMT ---
Therapy recommending outpatient vestibular therapy for patient. PARAG CHUA in to discuss with patient. Patient states she would like to consider it and if so she will schedule on her own. PARAG CHUA updated hospitalist, script received and placed in discharge packet with [employer] information for Outpatient Vestibular Therapy.
--- NOTE | 2024-12-11 22:24 | MRI_ITS ---
PROCEDURE: BRAIN WITHOUT CONTRAST 12/11/2024 REASON FOR EXAM: EVAL FOR CVA TECHNIQUE: BRAIN WITHOUT CONTRAST Multiplanar and multisequence images were obtained. FINDINGS: No abnormal diffusion. No hydrocephalus. No intracranial mass. No pathologic flow voids. No demyelination. Punctate prior left cerebellar infarction is present. The orbits are symmetric and there are no sinonasal air-fluid levels. There is no hippocampal asymmetry. MRI/Brain without Contrast IMPRESSION: Prior punctate left cerebellar infarction. Otherwise negative Reading Location[facility]
== END 2024-12-11 15:10 | disposition home or self-care (01) ==
LOC: ED 21:53 → PCU 22:38
PROVIDERS: Physician Assistant; Admitting Provider Hospitalist; Emergency Provider Emergency Medicine; PCP Family Medicine; Referring Provider Emergency Medicine
DX: G45.9 Transient cerebral ischemic attack, unspecified (principal); R20.2 Paresthesia of skin; Z79.899 Other long term (current) drug therapy; R29.898 Other symptoms and signs involving the musculoskeletal system; I10 Essential (primary) hypertension; Z79.82 Long term (current) use of aspirin; Z86.73 Personal history of transient ischemic attack (TIA), and cerebral infarction without residual deficits; R29.700 NIHSS score 0
CPT/HCPCS: 36415; 70450; 70496; 70498; 70551; 71046; 80048; 80061; 81001; 83036; 83880; 84443; 84484; 85025; 85027; 92610; 93005; 93306; 94762; 97161; 97165; 99221; 99285; Q9967; A4216; G0378